=== PATIENT | male | born 1985 | race Caucasian/White ===

== ENCOUNTER 2018-01-12 20:00 | Inpatient (IN) | payer MEDICAID, OTHER ==
[~2018-01-12] VITALS: Ht 177.8 cm; Wt 78.9 kg
[~2018-01-12 20:00] MED LIST: CLOZ100 PO
[2018-01-12 20:41] LABS: BASOPHILS % (AUTO) 0.4 % (0.0-2.0); HEMATOCRIT 42.1 % (41-53); HEMOGLOBIN 14.6 g/dL (13.5-17.5); LYMPHOCYTES # (AUTO) 3.5 K/uL (1.0-4.8); LYMPHOCYTES % (AUTO) 37.1 % (22.0-44.0); MEAN CORPUSCULAR HEMOGLOBIN 29.9 pg (26.0-34.0); MEAN CORPUSCULAR HGB CONC 34.7 G/dL (31.0-37.0); MEAN CORPUSCULAR VOLUME 86 fL (80-100); MONOCYTES # (AUTO) 0.7 K/uL (0.1-1.0); MONOCYTES % (AUTO) 7.6 % (2.0-9.0); NEUTROPHILS # (AUTO) 4.9 K/uL (1.8-7.7); NEUTROPHILS % (AUTO) 51.9 % (40.0-70.0); PLATELET COUNT (AUTO) 177 K/uL (150-450); RED BLOOD CELL COUNT(AUTO) 4.89 MIL/uL (4.50-5.90); RED CELL DISTRIBUTION WIDTH 12.8 % (11.5-14.5)
[2018-01-12 20:51] LABS: ANION GAP 8 mmol/L (8-16); CALCIUM, TOTAL 8.7 mg/dL (8.8-10.5); CARBON DIOXIDE 29 mmol/L (22-29); CHLORIDE 105 mmol/L (98-107); GLOMERULAR FILTR. RATE CALC > 60 mL/min (>60); GLUCOSE,RANDOM 97 mg/dL (70-110); POTASSIUM 3.6 mmol/L (3.5-5.1); SODIUM SERUM 142 mmol/L (136-145); UREA NITROGEN, BLOOD 11 mg/dL (7-18)
[2018-01-12 20:58] LABS: ALANINE AMINOTRANSFERASE 24 U/L (12-78); ALBUMIN 4.2 g/dL (3.4-5.0); ALKALINE PHOSPHATASE 49 U/L (46-116); ASPARTATE AMINOTRANSFERASE 14 U/L (15-37); BILIRUBIN,TOTAL 0.4 mg/dL (0.1-1.0); TOTAL PROTEIN, SERUM 7.3 g/dL (6.4-8.2)
[2018-01-12] MEDS ORDERED: HALOPERIDOL 5 MG TABLET PO PRN (23:00)
[2018-01-13 06:59] LABS: CHOL/HDL RATIO 3.3 (4.2-7.3); CHOLESTEROL 117 mg/dL (131-200); HDL CHOLESTEROL 35 mg/dL (40-60); LDL CHOL (CALC.) 66 mg/dL (0-130); TRIGLYCERIDES 79 mg/dL (15-150)
[2018-01-13 12:05] VITALS: BP 115/63
[2018-01-13 16:28] VITALS: BP 125/63
[2018-01-14 06:27] VITALS: BP 112/65
[2018-01-14 08:05] VITALS: BP 108/60
[2018-01-14 16:13] VITALS: BP 124/75
[2018-01-14] MEDS: LORazepam 2 MG TABLET PO PRN (20:37)
[2018-01-14] MEDS: ZOLPIDEM TARTRATE 10 MG TABLET PO PRN (20:37)
[2018-01-14] MEDS: OLANZapine 10 MG TABLET PO SCH (20:37)
[2018-01-15 06:34] VITALS: BP 109/69
[2018-01-15 08:12] VITALS: BP 119/77
[2018-01-15 16:10] VITALS: BP 122/68
[2018-01-15] MEDS: ZOLPIDEM TARTRATE 10 MG TABLET PO PRN (20:23)
[2018-01-15] MEDS: LORazepam 2 MG TABLET PO PRN (20:23)
[2018-01-15] MEDS: OLANZapine 10 MG TABLET PO SCH (20:23)
[2018-01-15] MEDS ORDERED: MAGNESIUM HYDROXIDE SUSPENSION 30 ML UDCUP PO PRN (22:00)
[2018-01-15] MEDS ORDERED: ONDANSETRON HCL 4 MG TABLET PO PRN (22:00)
[2018-01-15] MEDS ORDERED: NICOTINE 14 MG/24 HOUR PATCH TD PRN (22:00)
[2018-01-15] MEDS ORDERED: CloNIDine HCL 0.1 MG TABLET PO PRN (22:00)
[2018-01-15] MEDS ORDERED: DOCUSATE SODIUM 100 MG CAPSULE PO PRN (22:00)
[2018-01-15] MEDS ORDERED: PETROLATUM,WHITE 71 GM JELLY TP PRN (22:00)
[2018-01-15] MEDS ORDERED: MAG HYDROX/AL HYDROX/SIMETH ES 30 ML SUSPENSION UDCUP PO PRN (22:00)
[2018-01-15] MEDS ORDERED: IBUPROFEN 400 MG TABLET PO PRN (22:00)
[2018-01-15] MEDS ORDERED: LOPERAMIDE HCL 2 MG CAPSULE PO PRN (22:00)
[2018-01-15] MEDS ORDERED: ACETAMINOPHEN 325 MG TABLET PO PRN (22:00)
[2018-01-15] MEDS ORDERED: ALBUTEROL SULFATE HFA 90 MCG/PUFF 8 GM INHALER IH PRN (22:00)
[2018-01-15] MEDS ORDERED: GuaiFENesin/D-METHORPHAN [SUGAR-FREE] 200-20MG/10 ML SYRUP UDCUP PO PRN (22:00)
[2018-01-16 05:18] VITALS: BP 118/69
[2018-01-16 08:06] VITALS: BP 116/70
[2018-01-16 08:50] LABS: HEMOGLOBIN A1C 5.1 % (4.5-6.2)
[2018-01-16 09:09] LABS: FREE T4 (FREE THYROXINE) 0.92 ng/dL (0.76-1.46); THYROID STIMULATING HORMONE 3.09 uIU/mL (0.36-3.74)
[2018-01-16 16:04] VITALS: BP 118/74
[2018-01-16] MEDS: LORazepam 2 MG TABLET PO PRN (16:23)
[2018-01-16] MEDS: OLANZapine 10 MG TABLET PO SCH (21:03)
[2018-01-17 02:40] VITALS: BP 117/77
[2018-01-17 08:04] VITALS: BP 120/70
[2018-01-17] MEDS ORDERED: OLAN10TA3 PO (10:31)
== END 2018-01-17 13:29 | disposition home or self-care (01) | DRG 750 ==
LOC: EMS 20:01 → B3A 01-13 07:49
PROVIDERS: ADMIT Psychiatry & Neurology Psychiatry; ATTEND Psychiatry & Neurology Psychiatry
DX: F20.0 Paranoid schizophrenia (principal); R45.851 Suicidal ideations; E83.51 Hypocalcemia; K21.9 Gastro-esophageal reflux disease without esophagitis; F32.9 Major depressive disorder, single episode, unspecified; F41.9 Anxiety disorder, unspecified; F15.20 Other stimulant dependence, uncomplicated; F10.20 Alcohol dependence, uncomplicated; Z91.5 Personal history of self-harm; Y90.0 Blood alcohol level of less than 20 mg/100 ml
CPT/HCPCS: 83036; 84439; 84443; 90686; G0480